=== PATIENT | male | born 1975 | race Caucasian/White ===

== ENCOUNTER 2017-02-07 17:52 | Emergency (ER) | payer BC ==
[2017-02-07] MEDS ORDERED: Keppra 500 MG/5 ML*** 500 MG in D5w 100ML Mini Bag 100 ML 100 ML IV ONE (18:16)
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
[2017-02-07] MEDS ORDERED: D5w 100ML Mini Bag 100 ML 100 ML IV ONE (18:30)
[2017-02-07] MEDS ORDERED: Keppra 500 MG/5 ML ONE (18:30)
[2017-02-07 18:34] LABS: BASOPHIL % 0.5 % (0.0-0.4); Eosinophil % 5.9 % (0.00-5.0); Granulocytes % 49.6 % (36.0-66.0); Lymphocytes % 34.4 % (24.0-44.0); Mean Cell Volume 94.1 fl (78-100); Mean Corpuscular Hemoglobin 31.4 pg (26-32); Monocytes % 9.6 % (0.0-12.0); Platelet Count 214 K/mm3 (150-450); Red Blood Count 4.74 M/mm3 (4.1-5.6); Red Cell Distribution Width 13.9 % (11.5-14.0); White Blood Count 9.6 K/mm3 (4.0-10.5)
[2017-02-07 18:40] LABS: COMPLETE URINE MICROSCOPIC? YES; Collection Type CLEAN CATCH; Ph 5.5 (5-6)
[2017-02-07 18:41] LABS: Epithelial Cells RARE /HPF (FEW)
[2017-02-07 19:11] LABS: ANION GAP 14.3 MEQ/L (5-15); BLOOD UREA NITROGEN 18 mg/dL (9-20); CHLORIDE 99 mEq/L (98-107); Carbon Dioxide 26.8 mEq/L (21-32); Glucose 95 MG/DL (70-110); Potassium 3.7 mEq/L (3.5-5.1); SODIUM 136 mEq/L (136-145)
[2017-02-07 19:25] VITALS: BP 138/87; PULSE 84; O2SAT 97
== END 2017-02-07 19:25 | disposition home or self-care (01) ==
LOC: ED 17:52
DX: R56.9 Unspecified convulsions (principal); I10 Essential (primary) hypertension
CPT/HCPCS: 36000; 36415; 80048; 80307; 80320; 81000; 83986; 85025; 93041; 96365; 99284; J1953